=== PATIENT | male | born 1990 | race Two or more races ===

== ENCOUNTER → 2021-08-27 | Emergency (ER) | payer SELFPAY ==
[~2021-08-27] VITALS: Ht 170.2 cm; Wt 93.0 kg
[~2021-08-27] MED LIST: CHLO25CA22 PO; IV NS 0.9% 1,000 ML BAG IV ONE; LORAZEPAM INJ 2 MG/ML VIAL IVP ONE; LORAZEPAM INJ 2 MG/ML VIAL ONE; ONDA4TAB5 PO
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
--- NOTE | 2021-08-27 12:18 | NUR ---
pt in restroom
--- NOTE | 2021-08-27 12:30 | NUR ---
lab at bedside
[2021-08-27 12:55] LABS: BASOPHILS # (AUTO) 0.1 K/uL (0.0-0.2); BASOPHILS % (AUTO) 1.3 % (0.0-2.0); EOSINOPHILS % (AUTO) 1.3 % (0.0-6.0); HEMATOCRIT 45 % (39-51); HEMOGLOBIN 15.1 g/dL (13.5-17.5); LYMPHOCYTES # (AUTO) 2.8 K/uL (0.8-4.8); LYMPHOCYTES % (AUTO) 32.7 % (20.0-44.0); MEAN CORPUSCULAR HGB CONC 34 g/dl (31.0-36.0); MEAN CORPUSCULAR VOLUME 97 fL (80-96); MONOCYTES # (AUTO) 0.6 K/uL (0.1-1.30); MONOCYTES % (AUTO) 7.2 % (2.0-12.0); NEUTROPHILS # (AUTO) 4.9 K/uL (1.8-8.9); NEUTROPHILS % (AUTO) 57.5 % (43.0-81.0); PLATELET COUNT (AUTO) 304 K/uL (150-450); RED BLOOD CELL COUNT(AUTO) 4.65 MIL/uL (4.5-6.0); WHITE BLOOD COUNT (AUTO) 8.5 K/uL (4.3-11.0)
[2021-08-27 13:04] LABS: CALCIUM, SERUM 7.8 mg/dL (8.5-10.1); POTASSIUM 4.2 mmol/L (3.5-5.1)
[2021-08-27 13:11] LABS: BILIRUBIN,DIRECT 0.1 mg/dL (0.0-0.2); BILIRUBIN,TOTAL 0.2 mg/dL (0.2-1.0); TOTAL PROTEIN, SERUM 8.2 g/dL (6.4-8.2)
--- NOTE | 2021-08-27 13:14 | NUR ---
TAKEN TO CT
--- NOTE | 2021-08-27 13:31 | NUR ---
X-RAY AT THE BEDSIDE
--- NOTE | 2021-08-27 14:00 | NUR ---
PT LAYING COMFORTABLY IN BED, VS STABLE
--- NOTE | 2021-08-27 14:47 | NUR ---
PT SLEEPING IN BED, VS STABLE
--- NOTE | 2021-08-27 15:30 | NUR ---
PT SLEEPING IN BED, VS STABLE, CONTINUES TO BE UNDER OBSERVATION
--- NOTE | 2021-08-27 16:28 | NUR ---
PT SLEPING COMFORTABLY IN BED. AROUSABLE TO STIMULI. VS STABLE
--- NOTE | 2021-08-27 17:15 | NUR ---
PT SLEEPING IN BED. AROUSABLE TO PHYSICAL STIMULI. VS STABLE
[2021-08-27 18:45] VITALS: BP 106/66
== END | disposition home or self-care (01) ==
LOC: ER 11:34
DX: F10.129 Alcohol abuse with intoxication, unspecified (principal); Y90.8 Blood alcohol level of 240 mg/100 ml or more
CPT/HCPCS: 36415; 70450; 71045; 80048; 80076; 80307; 80320; 85025; 85730; 96361; 96374; 99285; J2060; J7030; G0480

== ENCOUNTER 2021-08-29 01:23 | Emergency (ER) | payer SELFPAY ==
[~2021-08-29] VITALS: Ht 170.2 cm; Wt 95.3 kg
[2021-08-29] MEDS ORDERED: ONDANSETRON 4 MG TAB.RAPDIS SL ONE (01:30)
--- NOTE | 2021-08-29 01:30 | NUR ---
PT BIBRA C/O N/V S/P "DRINKING VODKA ALL DAY". PT AAOX4 BREATHING EVENLY AND UNLABORED. PT ATTACHED TO MONITOR AND POX. PT GIVEN BLANKET AND CALL LIGHT WITHIN REACH.
[2021-08-29] MEDS ORDERED: ONDANSETRON 4 MG TAB.RAPDIS ONE (01:42)
[2021-08-29] MEDS ORDERED: CHLORDIAZEPOXIDE HCL 25 MG CAPSULE ONE (01:53)
[2021-08-29] MEDS ORDERED: CHLORDIAZEPOXIDE HCL 25 MG CAPSULE PO ONE (02:00)
[2021-08-29] MEDS ORDERED: CHLO25CA22 PO (02:32)
[2021-08-29] MEDS ORDERED: ONDA4TAB5 PO (02:32)
--- NOTE | 2021-08-29 02:50 | NUR ---
Patient discharged to home in stable condition. Written and verbal after care instructions given. Patient verbalizes understanding of instruction. Pt ambulatory with a steady gait
[2021-08-29 03:18] VITALS: BP 140/95
== END 2021-08-29 02:50 | disposition home or self-care (01) ==
LOC: ER 01:42
DX: F10.239 Alcohol dependence with withdrawal, unspecified (principal); R11.2 Nausea with vomiting, unspecified; Z60.2 Problems related to living alone; Y90.9 Presence of alcohol in blood, level not specified
CPT/HCPCS: 99283; Q0162